=== PATIENT | male | born 1940 | race Caucasian/White ===

== ENCOUNTER → 2017-07-30 10:24 | Outpatient (CLI) | payer MEDICARE, OTHER | END | disposition home or self-care (01) | LOC: D.US 10:24 | DX: M79.605 Pain in left leg (principal) ==

== ENCOUNTER → 2018-10-29 11:37 | Outpatient (CLI) | payer MEDICARE, OTHER | END | disposition home or self-care (01) | LOC: D.HCCARDIO 11:30 | PROVIDERS: ATTEND Internal Medicine Cardiovascular Disease | DX: R06.00 Dyspnea, unspecified (principal); I34.0 Nonrheumatic mitral (valve) insufficiency ==

== ENCOUNTER → 2020-02-10 11:16 | Outpatient (CLI) | payer MEDICARE, OTHER | END | disposition home or self-care (01) | LOC: D.HCCECHO 11:16 | PROVIDERS: ATTEND Internal Medicine Cardiovascular Disease | DX: I34.0 Nonrheumatic mitral (valve) insufficiency (principal) ==

== ENCOUNTER → 2020-03-09 10:52 | Outpatient (CLI) | payer MEDICARE, OTHER | END | disposition home or self-care (01) | LOC: D.US 10:52 | PROVIDERS: ATTEND Internal Medicine Cardiovascular Disease | DX: G45.1 Carotid artery syndrome (hemispheric) (principal) ==